=== PATIENT | male | born 1955 | race American Indian/Alaskan Native ===

== ENCOUNTER 2021-02-24 07:26 | Day surgery (SDC) | payer BC, OTHER ==
[2021-02-24] MEDS ORDERED: ASPIRIN EC 325 MG TAB PO ONE (08:06)
[2021-02-24] MEDS ORDERED: SODIUM CHLORIDE 0.9% 500 ML 500 ML IV SCH (09:00)
[2021-02-24 09:18] LABS: Basophils % (Auto) 0.4 % (0.0-1.8); Eosinophils # (Auto) 0.1 K/mm3 (0.0-0.4); Eosinophils % (Auto) 2.3 % (0.0-4.3); Hematocrit 39.1 % (35.5-45.6); Lymphocytes # (Auto) 1.2 K/mm3 (1.2-5.4); Lymphocytes % (Auto) 46.9 % (13.4-35.0); Mean Corpuscular HGB Conc 33 % (32-34); Mean Corpuscular Volume 93 fl (84-94); Monocytes # (Auto) 0.3 K/mm3 (0.0-0.8); Platelet Count 164 K/mm3 (140-440); Red Cell Distribution Width 13.3 % (13.2-15.2)
[2021-02-24 09:38] LABS: BUN/Creatinine Ratio 20; Blood Urea Nitrogen 16 mg/dL (9-20); Calcium 9.2 mg/dL (8.4-10.2); Hemolysis Index 7
[2021-02-24 10:09] LABS: INR 1.19 (0.87-1.13)
[2021-02-24] MEDS ORDERED: HEPARIN/NS 5000 UNIT/500ML 500 ML IR ONE ×2 (10:21→10:23)
[2021-02-24] MEDS ORDERED: HEPARIN 10,000 UNITS/10 ML VIAL ONE (10:21)
[2021-02-24] MEDS ORDERED: fentaNYL 100 MCG/2 ML INJ ONE (10:22)
[2021-02-24] MEDS ORDERED: VERAPAMIL 5 MG/2 ML INJ ONE (10:22)
[2021-02-24] MEDS ORDERED: MIDAZOLAM 2 MG/2 ML INJ ONE (10:22)
[2021-02-24] MEDS ORDERED: LIDOCAINE (2%) 20 MG/1 ML VIAL 20 ML MDV INFILTRATI ONE (10:22)
--- NOTE | 2021-02-24 11:16 | Short Stay Summary ---
Short Stay Documentation Date of service: 02/24/21 - History H&P: obtained from office - Allergies and Medications Current Medications: Allergies No Known Allergies Allergy (Verified 02/24/21 08:04) Home Medications Medication Instructions Recorded Confirmed Last Taken Type Dabigatran [Pradaxa] 150 mg PO BID #60 capsule 03/17/16 02/24/21 02/23/21 Rx 150 mg carvediloL [Coreg] 6.25 mg PO BID #60 tablet 03/17/16 02/24/21 02/23/21 Rx 6.25mg Sildenafil Citrate [Viagra] 50 mg PO PRN PRN 02/24/21 02/24/21 02/23/21 History 50 mg Simvastatin 20 mg PO HS 02/24/21 02/24/21 02/23/21 History 20 mg Spironolactone [Aldactone] 12.5 mg PO DAILY 02/24/21 02/24/21 02/23/21 History 12.5mg lisinopriL [Zestril TAB] 5 mg PO QDAY 02/24/21 02/24/21 02/23/21 History 5 mg Active Medications Sodium Chloride (Nacl 0.9% 500 Ml) 500 mls @ 50 mls/hr IV DIRECT NEY Stop: 02/24/21 18:59 Last Admin: 02/24/21 09:30 Dose: 50 mls/hr Documented by: - Brief post op/procedure progress note Date of procedure: 02/24/21 Pre-op diagnosis: CMP Post-op diagnosis: other (NICMP) Procedure: C - see dictated cath report Anesthesia: local Estimated blood loss: none Condition: stable - Disposition Condition at discharge: Good Disposition: DC-01 TO HOME OR SELFCARE - Discharge Diagnoses (1) NICM (nonischemic cardiomyopathy) Status: Chronic (2) Nonobstructive atherosclerosis of coronary artery Status: Chronic (3) Atrial fibrillation Status: Chronic Short Stay Discharge Plan Activity: advance as tolerated Diet: low fat, low cholesterol, low salt Wound: open to air, keep clean and dry, per your surgeon's advice Follow up with: JENAE DAMON MD [Staff Physician] - 7 Days ([place] office, 03/04/2021 @ 11:00AM)
[2021-02-24] MEDS ORDERED: traMADol 50 MG TAB PO PRN (11:17)
[2021-02-24] MEDS ORDERED: HYDROcodone/ACETAMINOPHEN 5-325 MG TAB PO PRN (11:17)
[2021-02-24 14:37] VITALS: BP 115/54
--- NOTE | 2021-02-24 15:36 | Cardiac Catherization Report ---
LEFT HEART CATHETERIZATION ORDERING PHYSICIAN: Dr. Charlie Bullock. BEING DONE BY: Dr. Cardenas. CLINICAL INFORMATION: This is a 65-year-old -[place] gentleman who is a smoker, who has cardiomyopathy, is here for an ischemic evaluation. The patient was done with moderate sedation started at 10:48, finished at 11:04, 15 minutes of moderate sedation. Procedure was done via the right radial artery, sterile technique, local anesthesia, 6-Croatian radial sheath inserted. Left system engaged with JL3.5 catheter with following findings: Left main is large and patent, bifurcates into large LAD, is patent. Diagonal 1 is a large caliber, patent. Circumflex is a large caliber, patent. OM1 and OM2 medium caliber vessel, patent. RCA JR4, is a large dominant vessel, patent, proximal and mid 20%, distal 20%. PDA, PLV are patent. LV gram done in [facility] and [place] shows moderate LV dysfunction, EF 35%. LVEDP 14 mmHg, LV is 120. Aortic is 118/66. No significant gradient across the aortic valve on pullback. 5-Croatian catheters all taken over guidewire, 6-Croatian radial sheath was discontinued. Radial band applied. No hematoma, no bleeding. SUMMARY: Left main patent, LAD patent, circumflex patent, OM1 and OM2 patent. RCA proximal, mid and distal 20%, PDA patent with mild luminal irregularities. Moderate LV dysfunction. This is nonischemic cardiomyopathy. Continue risk factor modification. Follow up with primary airport operations specialist. Discussed with the patient and the patient's friend in detail. JOB# [id number] TAMI/ROMAN
--- NOTE | 2021-02-25 11:40 | Electrocardiograph Report ---
[facility] Test Date: 2021-02-24 Test Time: 08:04:27 Pat Name: VISHAL BLANDON Department: Room: Gender: M Last Marker: AARON : 1955 Requested By: SHERRY BRICE Order Number: [id number] Reading MD: Shana Hills Measurements Intervals [place] Rate: 68 P: 42 [place]: 197 QRS: 3 QRSD: 108 T: 24 QT: 431 QTc: 460 Interpretive Statements Sinus rhythm No previous ECG available for comparison Electronically Signed On 02-25-2021 11:39:59 EDT by Shana Hills
== END 2021-02-24 14:15 | disposition home or self-care (01) ==
LOC: CATHLABREC 07:26
PROVIDERS: ATTEND Internal Medicine
DX: I42.0 Dilated cardiomyopathy (principal); I48.0 Paroxysmal atrial fibrillation; I11.0 Hypertensive heart disease with heart failure; I50.21 Acute systolic (congestive) heart failure; R93.1 Abnormal findings on diagnostic imaging of heart and coronary circulation; I25.10 Atherosclerotic heart disease of native coronary artery without angina pectoris; E78.00 Pure hypercholesterolemia, unspecified; Z80.0 Family history of malignant neoplasm of digestive organs; Z79.899 Other long term (current) drug therapy
CPT/HCPCS: 36415; 80048; 85025; 85610; 85730; 93005; 93458; 99156; C1894; J1644; J2250; J3010; J7040; Q9967

== ENCOUNTER 2021-09-23 12:47 | Emergency (ER) | payer BC ==
[2021-09-23 12:52] VITALS: BP 126/76
[2021-09-23] MEDS ORDERED: SODIUM CHLORIDE 0.9% 1000 ML 1,000 ML IV ONE (13:16)
[2021-09-23] MEDS ORDERED: MECLIZINE 25 MG TAB PO ONE (13:16)
[2021-09-23 13:39] LABS: Hematocrit 36.8 % (35.5-45.6); Hemoglobin 12.1 gm/dl (11.8-15.2); Mean Corpuscular HGB Conc 33 % (32-34); Mean Corpuscular Volume 94 fl (84-94); Platelet Count 184 K/mm3 (140-440); Red Blood Count 3.93 M/mm3 (3.65-5.03); Red Cell Distribution Width 13.4 % (13.2-15.2)
[2021-09-23 14:06] LABS: Alanine Aminotransferase 13 units/L (7-56); Albumin 3.9 g/dL (3.9-5); Blood Urea Nitrogen 12 mg/dL (9-20); Calcium 8.8 mg/dL (8.4-10.2); Hemolysis Index 3
[2021-09-23 14:07] LABS: BUN/Creatinine Ratio 17
--- NOTE | 2021-09-23 14:25 | Emergency Department Report ---
ED Dizziness HPI - General Chief Complaint: Dizziness Stated Complaint: DIZZY AND LIGHTHEADED Time Seen by Provider: 09/23/21 13:09 Source: patient Mode of arrival: Ambulatory Limitations: No Limitations - History of Present Illness Initial Comments: Patient is a 65-year-old F [place]ian male with past medical history atrial fibrillation who is currently on blood thinners who is presenting with 1 week of dizziness. States the dizziness is worse when he stands and better when he is laying flat. Denies any nausea with the dizziness. States it is not exactly a feeling of near syncope with more spinning sensation. No nausea vomiting. Denies cough cold congestion fevers chills diarrhea. Patient is on blood thinner but states he has not had any bloody stools or anything it appears to be melena. Patient is denying any focal neurological deficits. - Related Data Home Medications Medication Instructions Recorded Confirmed Last Taken Sildenafil Citrate [Viagra] 50 mg PO PRN PRN 02/24/21 02/24/21 02/23/21 50 mg Simvastatin 20 mg PO HS 02/24/21 02/24/21 02/23/21 20 mg Spironolactone [Aldactone] 12.5 mg PO DAILY 02/24/21 02/24/21 02/23/21 12.5mg lisinopriL [Zestril TAB] 5 mg PO QDAY 02/24/21 02/24/21 02/23/21 5 mg Previous Rx's Medication Instructions Recorded Last Taken Type Dabigatran [Pradaxa] 150 mg PO BID #60 capsule 03/17/16 02/23/21 Rx 150 mg carvediloL [Coreg] 6.25 mg PO BID #60 tablet 03/17/16 02/23/21 Rx 6.25mg Meclizine [Antivert] 25 mg PO TID PRN #14 tablet 09/23/21 Unknown Rx Allergies Allergy/AdvReac Type Severity Reaction Status Date / Time No Known Allergies Allergy Verified 09/23/21 12:47 ED Review of Systems ROS: Stated complaint: DIZZY AND LIGHTHEADED Other details as noted in HPI Comment: All other systems reviewed and negative ED Past Medical Hx - Past Medical History Hx Hypertension: Yes Hx Congestive Heart Failure: No Hx Liver Disease: No Hx Asthma: No Hx COPD: No Additional medical history: BRONCHITIS. A.FIB - Surgical History Additional Surgical History: JIMMY. INQUINAL HERNIA REPAIR - Social History Smoking Status: Never Smoker - Medications Home Medications: Home Medications Medication Instructions Recorded Confirmed Last Taken Type Dabigatran [Pradaxa] 150 mg PO BID #60 capsule 03/17/16 02/24/21 02/23/21 Rx 150 mg carvediloL [Coreg] 6.25 mg PO BID #60 tablet 03/17/16 02/24/21 02/23/21 Rx 6.25mg Sildenafil Citrate [Viagra] 50 mg PO PRN PRN 02/24/21 02/24/21 02/23/21 History 50 mg Simvastatin 20 mg PO HS 02/24/21 02/24/21 02/23/21 History 20 mg Spironolactone [Aldactone] 12.5 mg PO DAILY 02/24/21 02/24/21 02/23/21 History 12.5mg lisinopriL [Zestril TAB] 5 mg PO QDAY 02/24/21 02/24/21 02/23/21 History 5 mg Meclizine [Antivert] 25 mg PO TID PRN #14 tablet 09/23/21 Unknown Rx ED Physical Exam - General Limitations: No Limitations General appearance: alert, in no apparent distress - Head Head exam: Present: atraumatic, normocephalic - Eye Eye exam: Present: normal appearance - ENT ENT exam: Present: mucous membranes moist - Neck Neck exam: Present: normal inspection - Respiratory Respiratory exam: Present: normal lung sounds bilaterally. Absent: respiratory distress, wheezes, rales, rhonchi - Cardiovascular Cardiovascular Exam: Present: regular rate, normal rhythm, normal heart sounds. Absent: systolic murmur, diastolic murmur, rubs, gallop - GI/Abdominal GI/Abdominal exam: Present: soft, normal bowel sounds. Absent: distended, tenderness, guarding, rebound - Rectal Rectal exam: Present: deferred - Extremities Exam Extremities exam: Present: normal inspection - Back Exam Back exam: Present: normal inspection - Neurological Exam Neurological exam: Present: alert, oriented X3 - Psychiatric Psychiatric exam: Present: normal affect, normal mood - Skin Skin exam: Present: warm, dry, intact, normal color. Absent: rash ED Course Vital Signs 09/23/21 09/23/21 12:50 12:51 Temperature 97.3 F L Pulse Rate 71 Respiratory 18 Rate Blood Pressure 126/76 [Right] O2 Sat by Pulse 98 Oximetry ED Medical Decision Making - Lab Data Result diagrams: 09/23/21 13:15 09/23/21 13:15 Labs 09/23/21 09/23/21 13:15 13:15 WBC 3.1 L RBC 3.93 Hgb 12.1 Hct 36.8 MCV 94 MCH 31 MCHC 33 RDW 13.4 Plt Count 184 Seg Neutrophils % Band Booker Sodium 137 Potassium 4.1 Chloride 102.4 Carbon Dioxide 23 Anion Gap 16 BUN 12 Creatinine 0.7 L Estimated GFR > 60 BUN/Creatinine Ratio 17 Glucose 89 Calcium 8.8 Total Bilirubin 0.30 AST 16 ALT 13 Alkaline Phosphatase 39 Total Protein 6.7 Albumin 3.9 Albumin/Globulin Ratio 1.4 - EKG Data -: EKG Interpreted by Me EKG shows normal: sinus rhythm, axis, intervals, QRS complexes, ST-T waves Rate: normal - EKG Data Interpretation: normal EKG 09/23/21 14:22 Patient not in atrial fibrillation at this time. - Medical Decision Making Patient's laboratory studies are within normal limits. Has no dysfunction of his electrolytes and the patient is not anemic. Patient given a liter normal saline and states he actually is feeling much improved. Patient likely with some mild dehydration. States he does have some issues sometimes with his diet. States he is drinking plenty of fluids. We will also start the patient on meclizine. It is possible that the patient is having some atypical vertiginous symptoms. Patient having no difficulty with walking and has no focal neurological deficits and I do not believe that the patient has a central cause of vertigo at this time. Patient appears stable for discharge. Critical care attestation.: If time is entered above; I have spent that time in minutes in the direct care of this critically ill patient, excluding procedure time. ED Disposition Clinical Impression: Dizziness Disposition: 01 HOME / SELF CARE / HOMELESS Is pt being admited?: No Does the pt Need Aspirin: No Condition: Stable Instructions: Dizziness, [id number] Prescriptions: Meclizine [Antivert] 25 mg PO TID PRN #14 tablet PRN Reason: Vertigo Referrals: YEN PEREZ MD [Referring] - 3-5 Days Time of Disposition: 14:25
[2021-09-23 15:18] LABS: Total Cells Counted 100
[2021-09-23 15:19] LABS: Platelet Estimate Consistent w Auto
--- NOTE | 2021-09-24 13:01 | Electrocardiograph Report ---
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
== END 2021-09-23 15:00 | disposition home or self-care (01) ==
LOC: ED 12:47
DX: R42 Dizziness and giddiness (principal); I10 Essential (primary) hypertension; Z79.899 Other long term (current) drug therapy
CPT/HCPCS: 36415; 80053; 85007; 85025; 93005; 96360; 99283; J7030